=== PATIENT | male | born 1960 | race Caucasian/White ===

== ENCOUNTER 2025-07-15 11:17 | Outpatient (REF) | payer OTHER, SELFPAY ==
--- OUTSIDE RECORDS SUMMARY | 2025-07-15 14:09 | XMS_ITS | Encounter Summary ---
Author Organization [employer] Address [address] [facility] 7t [place] [address] Care Team Providers Care Process Engineering Intern Name Role Phone Seth Hughes NP Primary Care Provider Jayson Dennis Unavailable Unavailable Encounter Details Date Type Department Care Team (Late st Contact Info) Description 12/16/2022 Abstract Joann [facility] MEDICAL [address] [place] [address] Provider, MD [place] Social History Tobacco Use Types Packs/Day Years Used Date Smoking Tobacco: Never Assessed Depression Answer Date Recorded Patient Health Questionnaire-2 Score 0 12/19/2022 Sex and Gender Information Value Date Recorded Sex Assigned at Male 05/05/2025 3:26 PM EDT Legal Sex Male 5:42 PM EDT Gender Identity Male 05/05/2025 3:26 PM EDT Sexual Orientation Straight 05/05/2025 3: 26 PM EDT COVID-19 Exposure Response Date Recorded In the last 10 days, have yo u been in contact with someone who was confirmed or suspected to have Coronavirus/COVID-19? No / Unsure 12/18/2022 7:20 AM EDT documented as of this encounter Functional Status * Over the past 2 weeks, how often have you been bothered by any of the following problems? Question Answer Date of Assessment Author Little interest or pleasure in doing things Not at all 12/19/2022 11:14 AM EDT Renuka Schroeder MA Feeling down, depressed, or hopeless Not at all 12/19/2022 11:14 AM EDT Renuka Schroeder MA Patient Health Questionnaire -2 Score 0 12/19/2022 11:14 AM EDT Renuka Schroeder MA documented as of this encounter Plan of Treatment Upcoming Encounters Date Type Department Care Team (Late st Contact Info) Description 07/28/2025 10:00 AM EDT Office Visit [facility] MEDICAL [address] [place] [address] Seth Hughes NP [address] [place] [address] 08/17/2025 8:30 AM EST Office Visit [facility] DENTAL [address] [place] [address] Timigeorge Jareth 10/19/2025 8:30 AM EST Office Visit [facility] OPTOMETRY [address] [place] [address] Debi Bynum, OD [address] [place] [address] documented as of this encounter Procedures Procedure Name Priority Date/Time Associated Diagnosis Comments TSH Routine 02/28/2022 HEPATIC FUNCTION PANEL Routine 02/28/2022 LIPID PANEL, STANDARD Routine 02/28/2022 BASIC METABOLIC PANEL Routine 06/08/2021 HIV-1 ANTIBODY, EIA Routine 07/30/2015 documented in this encounter Results * TSH (02/28/2022) TSH 2.13 0.40 - 4.20 uIU/mL Comment:Free Triiodothyronin e, Serum 3.0 Blood Venous blood specimen / Unknown Narrative Resulting Agency Comment HCV Seth Hughes ORTHOPEDIC NURSE LAB BLOOD ORDERABLES Final R esult * Hepatic Function Panel (02/28/2022) ALT (SGPT) 40 <=1,000 U/L AST 35 U/L Blood Venous blood specimen / Unknown Narrative Resulting Agency Comment HCV Seth Hughes NP LAB BLOOD ORDERABLES Final R esult * (ABNORMAL) Lipid Panel, Standard (02/28/2022) Triglycerides 209(A) 40 - 160 mg/dL Cholesterol 106 0 - 200 mg/dL HDL Cholesterol 47 35 - 70 mg/dL LDL Cholesterol 17 mg/dL Blood Venous blood specimen / Unknown Narrative Resulting Agency Comment HCV Seth Hughes NP LAB BLOOD ORDERABLES Final R esult * Basic Metabolic Panel (06/08/2021) Glucose 114 mg/dL BUN 18 4 - 21 mg/dL Creatinine 1.0 mg/dL Potassium 4.0 3.4 - 5.5 mmol/L Sodium 137 137 - 147 mmol/L Blood Venous blood specimen / Unknown Narrative Resulting Agency Comment HCV Seth Hughes NP LAB BLOOD ORDERABLES Final R esult * HIV-1 antibody, EIA (07/30/2015) External HIV-1 Antibody Negative Comment:07/2015 Blood Venous blood specimen / Unknown Historical Provider LAB BLOOD ORDERABLES Cathy l Result documented in this encounter Visit Diagnoses Not on filedocumented in this encounter Care Teams Process Engineering Intern Relationship Specialty Start Date End Date Seth Hughes NP [address] [place] [address] PCP - General Internal Medicine 01/01/23 Jayson Dennis Community Health Worker Case Management 01/06/23 documented as of this encounter
--- OUTSIDE RECORDS SUMMARY | 2025-07-15 14:09 | XMS_ITS | Encounter Summary ---
Author Organization [employer] Address [address] [facility] 7t [place] [address] Care Team Providers Care Concrete Float Maker Name Role Phone Seth Hughes JUNIOR NET DEVELOPER Primary Care Provider [phone] Jayson Dennis Unavailable Unavailable Reason for Visit * Reason Comments Med Refill Encounter Details Date Type Department Care Team (Late st Contact Info) Description 01/19/2025 Refill Joann [facility] MEDICAL [address] [place] [address] Seth Hughes NP [address] [place] [address] Erectile dysfunction, unspecified erectile dysfunction type Social History Tobacco Use Types Packs/Day Years Used Date Smoking Tobacco: Every Day Cigarettes 1 42.8 Started: 1981 Smokeless Tobacco: Never Alcohol Use Standard Drinks/Week Comments Yes 6 (1 standard drink = 0.6 oz pur e alcohol) 6 pack a day Housing Stability Answer Date Recorded What is your housing situation today? I have kathy roberst 07/29/[address] you li ve. Do you have problems with any of the following? None of the above 07/29/2023 Food Insecurity Answer Date Recorded Within the past 12 months, y ou worried that your food would run out before you got money to buy more: Never True 07/29/2023 Within the past 12 months,th e food you bought just didn't last and you didn't have enough money to get more: Never True Transportation Answer Date Recorded In the past 12 months, has l ack of transportation kept you from medical appts, meetings, work or from getting things needed for daily living? No 07/29/2023 Utilities Answer Date Recorded In the past 12 months, has t he electric, gas, oil or water company threatened to shut off services in your home? No 07/29/2023 Depression Answer Date Recorded Patient Health Questionnaire-2 Score 0 12/19/2022 Sex and Gender Information Value Date Recorded Sex Assigned at Male 05/05/2025 3:26 PM EDT Legal Sex Male 5:42 PM EDT Gender Identity Male 05/05/2025 3:26 PM EDT Sexual Orientation Straight 05/05/2025 3: 26 PM EDT documented as of this encounter Plan of Treatment Upcoming Encounters Date Type Department Care Team (Late st Contact Info) Description 07/28/2025 10:00 AM EDT Office Visit [facility] MEDICAL [address] [place] [address] Seth Hughes NP [address] [place] [address] 08/17/2025 8:30 AM EST Office Visit [facility] DENTAL [address] [place] [address] Jareth Ramirez 10/19/2025 8:30 AM EST Office Visit [facility] OPTOMETRY [address] [place] [address] Debi Bynum, OD [address] [place] [address] documented as of this encounter Visit Diagnoses Diagnosis Erectile dysfunction, unspecified erectile dysfunction type documented in this encounter Care Teams Concrete Float Maker Relationship Specialty Start Date End Date Seth Hughes NP [address] [place] [address] PCP - General Internal Medicine 01/01/23 Jayson Dennis Community Health Worker Case Management 01/06/23 documented as of this encounter
--- OUTSIDE RECORDS SUMMARY | 2025-07-15 14:09 | XMS_ITS | Encounter Summary ---
Author Organization [employer] Address [address] [facility] 7t [place] [address] Care Team Providers Care Plush Weaver Name Role Phone Seth Hughes NP Primary Care Provider Jayson Dennis Unavailable Unavailable Encounter Details Date Type Department Care Team (Latest Contact Info) Description 09/09/2019 Abstract [facility], Provider, DDS Social History Tobacco Use Types Packs/Day Years Used Date Smoking Tobacco: Never Assessed Sex and Gender Information Value Date Recorded Sex Assigned at Male 05/05/2025 3:26 PM EDT Legal Sex Male 5:42 PM EDT Gender Identity Male 05/05/2025 3:26 PM EDT Sexual Orientation Straight 05/05/2025 3: 26 PM EDT documented as of this encounter Plan of Treatment Upcoming Encounters Date Type Department Care Team (Late st Contact Info) Description 07/28/2025 10:00 AM EDT Office Visit [facility] MEDICAL [address] [place] [address] Seth Hughes NP [address] [place] [address] 08/17/2025 8:30 AM EST Office Visit [facility] DENTAL [address] [place] [address] Jareth Ramirez 10/19/2025 8:30 AM EST Office Visit [facility] OPTOMETRY [address] [place] [address] Debi Bynum OD [address] [place] [address] documented as of this encounter Visit Diagnoses Not on filedocumented in this encounter Care Teams Plush Weaver Relationship Specialty Start Date End Date Seth Hughes NP [address] [place] [address] PCP - General Internal Medicine 01/01/23 Jayson Dennis Community Health Worker Case Management 01/06/23 documented as of this encounter
--- OUTSIDE RECORDS SUMMARY | 2025-07-15 14:09 | XMS_ITS | Encounter Summary ---
Author Organization [employer] Address [address] [facility] 7t [place] [address] Care Team Providers Care Planning Consultant Name Role Phone Seth Hughes NP Primary Care Provider Jayson Dennis Unavailable Unavailable Encounter Details Date Type Department Care Team (Latest Contact Info) Description 06/12/2022 Abstract [facility], Provider, DDS Social [...] Description 07/28/2025 10:00 AM EDT Office Visit [facility] MEDICAL [address] [place] [address] Seth Hughes NP [address] [place] [address] 08/17/2025 8:30 AM EST Office Visit [facility] DENTAL [address] [place] [address] Jareth Ramirez 10/19/2025 8:30 AM EST Office Visit [facility] OPTOMETRY [address] [place] [address] Debi Bynum OD [address] [place] [address] documented as of this encounter Visit Diagnoses Not on filedocumented in this encounter Care Teams Planning Consultant Relationship Specialty Start Date End Date Seth Hughes NP [address] [place] [address] PCP - General Internal Medicine 01/01/23 Jayson Dennis Community Health Worker Case Management 01/06/23 documented as of this encounter
--- OUTSIDE RECORDS SUMMARY | 2025-07-15 14:09 | XMS_ITS | Encounter Summary ---
Author Organization [employer] Address [address] [facility] 7t [place] [address] Care Team Providers Care Crop Duster Name Role Phone Seth Hughes NP Primary Care Provider Jayosn Dennis Unavailable Unavailable Encounter Details Date Type Department Care Team (Latest Contact Info) Description 12/07/2021 Abstract [facility] Dental, Provider, DDS Social [...] Description 07/28/2025 10:00 AM EDT Office Visit [facility] MEDICAL [address] [place] [address] Seth Hughes NP [address] [place] [address] 08/17/2025 8:30 AM EST Office Visit [facility] DENTAL [address] [place] [address] Jareth Ramirez 10/19/2025 8:30 AM EST Office Visit [facility] OPTOMETRY [address] [place] [address] Debi Bynum OD [address] [place] [address] documented as of this encounter Visit Diagnoses Not on filedocumented in this encounter Care Teams Crop Duster Relationship Specialty Start Date End Date Seth Hughes NP [address] [place] [address] PCP - General Internal Medicine 01/01/23 Jayson Dennis Community Health Worker Case Management 01/06/23 documented as of this encounter
--- OUTSIDE RECORDS SUMMARY | 2025-07-15 14:09 | XMS_ITS | Clinical Summary ---
Author Organization [facility] Address [address] [facility] [address] [place] [address] Phone Care Team Providers Care Environmental Health And Safety Intern Name Role Phone Seth Hughes NP Primary Care Provide r Ele Pereira MD Unavailable [phone] Allergies No known active allergies Medications allopurinol (ZYLOPRIM) 300 MG tablet Take 300 mg by mouth daily. 12/27/2020 Active lisinopril (PRINIVIL,ZESTRI L) 10 MG tablet Take 10 mg by mouth daily. 12/28/2020 Active atorvastatin (LIPITOR) 40 MG tablet 06/20/2021 Active Social History Tobacco Use Types Packs/Day Years Used Date Smoking Tobacco: Every Day Cigarettes Cigars Smokeless Tobacco: Never Alcohol Use Standard Drinks/Week Comments Yes 0 (1 standard drink = 0.6 oz pur e alcohol) Education Answer Date Recorded Are you interested in more education? Not on benjamin e 01/24/2023 Are you concerned about learning? Not on file 01/24/2023 No 01/24/2023 No 01/24/2023 Digital Access Answer Date Recorded No 02/22/2023 No 02/22/2023 No 02/22/2023 Reliable internet access at home? Not on file 02/22/2023 Device with a working camera? Not on file Sex and Gender Information Value Date Recorded Sex Assigned at Not on file Legal Sex Male 9:46 PM EDT Gender Identity Not on file Sexual Orientation Not on file Last Filed Vital Signs Vital Sign Reading Time Taken Comments Blood Pressure - - Pulse - - Temperature - - Respiratory Rate - - Oxygen Saturation - - Inhaled Oxygen Concentration - - Weight 99.8 kg (220 lb) 06/14/2021 8:19 AM EDT Height 152.4 cm (5') 10/08/2021 10:07 AM EST Body Mass Index 30.68 06/14/2021 8:19 AM EDT Plan of Treatment Health Maintenance Due Date Last Done Comments Adult Td,Tdap Booster 1961 CREATININE LEVEL 1961 LIPID PANEL 1961 POTASSIUM LEVEL 1961 DEPRESSION SCREENING 1973 SMOKING Hx and SMOKELESS TOBACCO SCREENING 1974 HEPATITIS C SCREENING 1979 HIV ONE-TIME SCREENING (18-6 5 YEARS) 1979 PNEUMOCOCCAL VACCINES (50+ years) (1 of 2 - PCV) 1980 COLOGUARD 2006 COLONOSCOPY 2006 COLORECTAL CANCER SCREENING 2006 FIT TEST 2006 FOBT 2006 SIGMOIDOSCOPY 2006 VIRTUAL COLONOSCOPY 2006 ZOSTER VACCINES (1 of 2) 2011 INFLUENZA VACCINE (#1) 2025 0, 10/05/2019 COVID-19 VACCINE (3 - 2024-2 6 season) 2025 01/26/2021, 12/29/2020 RSV VACCINE (1 - 1-dose 75+ series) 2036 HEPATITIS A VACCINES Aged Out No long er eligible based on patient's age to complete this topic HIB VACCINES Aged Out No longer eligi ble based on patient's age to complete this topic MENINGOCOCCAL VACCINES (ACWY) Aged Out No longer eligible based on patient's age to complete this topic MENINGOCOCCAL VACCINES (B) Aged Out N o longer eligible based on patient's age to complete this topic Medical Devices Not on file Insurance [facility] [employer] [place] [address] [place] [address] [place] [address] [place] [address] [place] [address] [place] [address] [employer] DIRECT Care Teams Environmental Health And Safety Intern Relationship Specialty Start Date End Date Seth Hughes NP PCP - General 02/14/21 Ele Pereira MD [address] [place] [phone] [email or web address] Insurance Assigned Provider Internal Medicine 04/08/22 Additional Source Comments The information contained in this document represents components of the legal health record. It is not the complete legal health record.[facility]
--- OUTSIDE RECORDS SUMMARY | 2025-07-15 14:09 | XMS_ITS | Encounter Summary ---
Author Organization [employer] Address [address] [facility] [address] 7t [place] [address] Care Team Providers Care Agriculture Internship Name Role Phone Seth Hughes NP Primary Care Provider Jayson Dennis Unavailable Unavailable Reason for Visit * Reason Comments Med Refill Encounter Details Date Type Department Care Team (Late st Contact Info) Description 11/28/2024 Refill [facility] MEDICAL [address] [place] [address] Sulma Asher FNP [address] [place] [address] Primary hypertension; Chronic gout without tophus, unspecified cause, unspecified site Social History Tobacco Use Types Packs/Day Years Used Date Smoking Tobacco: Every Day Cigarettes 1 42.8 Started: 1981 Smokeless Tobacco: Never Alcohol Use Standard Drinks/Week Comments Yes 6 (1 standard drink = 0.6 oz pur e alcohol) 6 pack a day Housing Stability Answer Date Recorded What is your housing situation today? I have kathy roberts 07/29/[address] you li [...] PM EDT documented as of this encounter Miscellaneous Notes * Telephone Encounter - Catrachita Nelson MD - 11/29/2024 8:46 AM EST Approving, but needs appt for additional refills. documented in this encounter Plan of Treatment Upcoming Encounters Date Type Department Care Team (Late st Contact Info) Description 07/28/2025 10:00 AM EDT Office Visit [facility] MEDICAL [address] [place] [address] Seth Hughes NP [address] [place] [address] 08/17/2025 8:30 AM EST Office Visit [facility] DENTAL [address] [place] [address] Jareth Ramirez 10/19/2025 8:30 AM EST Office Visit [facility] OPTOMETRY [address] [place] [address] Debi Bynum, PAWAN [address] [place] [address] documented as of this encounter Visit Diagnoses Diagnosis Primary hypertension Unspecified essential hypertension Chronic gout without tophus, unspecified cause, unspecified site documented in this encounter Care Teams Agriculture Internship Relationship Specialty Start Date End Date Seht Hughes NP [address] [place] [address] PCP - General Internal Medicine 01/01/23 Jayson Dennis Community Health Worker Case Management 01/06/23 documented as of this encounter
--- OUTSIDE RECORDS SUMMARY | 2025-07-15 14:09 | XMS_ITS | Encounter Summary ---
Author Organization [employer] Address [address] [facility] [place] [address] Care Team Providers Care Industry Consultant Name Role Phone Seth Hughes NP Primary Care Provider Jayson Dennis Unavailable Unavailable Encounter Details Date Type Department Care Team (Late st Contact Info) Description 05/26/2025 Results Follow-Up [facility] MEDICAL [address] [place] [address] Nanette Craig CNP [address] [place] [address] Referral to Wound Clinic Social History Tobacco Use Types Packs/Day Years Used Date Smoking Tobacco: Every Day Cigarettes 1 42.8 Started: 1982 Passive Smoke Exposure: Current Smokeless Tobacco: Never Alcohol Use Standard Drinks/Week Comments Yes 6 (1 standard drink = 0.6 oz pur e alcohol) 6 pack a day Alcohol Answer Date Recorded How often do you have a drink containing alcohol ? 0 05/05/2025 How many drinks containing a lcohol do you have on a typical day when you are drinking? 0 05/05/2025 How often do you have six or more drinks on one occasion? 0 05/05/2025 Housing Stability Answer Date Recorded What is your housing situation today? I have kathy roberts 04/14/[address] you li ve. Do you have problems with any of the following? None of the above 04/14/2025 Food Insecurity Answer Date Recorded Within the past 12 months, y ou worried that your food would run out before you got money to buy more: Never True 04/14/2025 Within the past 12 months,th e food you bought just didn't last and you didn't have enough money to get more: Never True Transportation Answer Date Recorded In the past 12 months, has l ack of transportation kept you from medical appts, meetings, work or from getting things needed for daily living? No 04/14/2025 Intimate Partner Violence Answer Date R ecorded Within the last year, have y ou been afraid of your partner or ex-partner? 2 05/05/2025 Within the last year, have y ou been humiliated or emotionally abused in other ways by your partner or ex-partner? 2 Within the last year, have y ou been kicked, hit, slapped, or otherwise physically hurt by your partner or ex-partner? 2 05/05/2025 Within the last year, have y ou been raped or forced to have any kind of sexual activity by your partner or ex-partner? 2 05/05/2025 Utilities Answer Date Recorded In the past 12 months, has t he electric, gas, oil or water company threatened to shut off services in your home? No 04/14/2025 Depression Answer Date Recorded Patient Health Questionnaire-2 Score 0 04/14/2025 Internet Access Answer Date Recorded Internet Access Q1 Yes 04/14/2025 Internet Access Q2 Not on file 04/14/2025 Education Answer Date Recorded What is the highest level of school you have completed or the highest degree you have received? Some college, no degree 04/14/2025 Sex and Gender Information Value Date Recorded Sex Assigned at Male 05/05/2025 3:26 PM EDT Legal Sex Male 5:42 PM EDT Gender Identity Male 05/05/2025 3:26 PM EDT Sexual Orientation Straight 05/05/2025 3: 26 PM EDT Occupation Industry Job Start Date Job End Date Not on file Not on file Not on file Not on file documented as of this encounter Plan of Treatment Upcoming Encounters Date Type Department Care Team (Late st Contact Info) Description 07/28/2025 10:00 AM EDT Office Visit [facility] MEDICAL [address] [place] [address] Seth Hughes NP [address] [place], [place] 08/17/2025 8:30 AM EST Office Visit Jo[facility] DENTAL [address] [place] [address] Jareth Ramirez 10/19/2025 8:30 AM EST Office Visit [facility] OPTOMETRY [address] [place], [place] [id number] Debi Bynum, PAWAN [address] [place] [address] documented as of this encounter Visit Diagnoses Not on filedocumented in this encounter Care Teams Industry Consultant Relationship Specialty Start Date End Date Seth Hughes NP [address] [place] [address] PCP - General Internal Medicine 01/01/23 Jayson Dennis Community Health Worker Case Management 01/06/23 documented as of this encounter
--- OUTSIDE RECORDS SUMMARY | 2025-07-15 14:09 | XMS_ITS | Clinical Summary ---
Author Organization [email or web address] Address [address] [facility] 7t [place] [address] Care Team Providers Care Registered Nurse Bone Marrow Transplant Name Role Phone Seth Hughes NP Primary Care Provider Jayson Dennis Unavailable Unavailable Allergies No known active allergies Medications sildenafil (Viagra) 50 MG tabletIndications:Ere ctile dysfunction, unspecified erectile dysfunction type TAKE 1 TABLET BY MOUTH EVERY DAY NEEDED FOR ERECTILE DYSFUNCTION 4 tablet 2 10/06/19 25 Active lisinopril 10 MG tabletIndications:Anisha catrachita hypertension TAKE 1 TABLET BY MOUTH EVERY DAY IN THE MORNING 90 tablet 1 05/11/20 25 Active allopurinol (Zyloprim) 300 MG tabletIndications:Chr onic gout without tophus, unspecified cause, unspecified site TAKE 1 TABLET BY MOUTH EVERY DAY 90 tablet 1 05/11/20 25 Active atorvastatin (Lipitor) 40 MG tabletIndications:Pur e hyperglyceridemia TAKE 1 TABLET BY MOUTH EVERY DAY 90 tablet 3 05/23/20 25 Active Active Problems Problem Noted Date Diagnosed Date Hypertriglyceridemia 01/10/2023 Obesity 01/10/2023 Thrombocytopenia 01/10/2023 Elevated blood pressure reading 01/10/2023 Alcohol abuse 01/10/2023 Dupuytren's contracture of both hands 01/10/2023 Presbyopia of both eyes 01/10/2023 Macular scar of right eye 01/10/2023 Primary osteoarthritis, right hand 01/10/2023 Primary osteoarthritis of left hand 01/10/2023 Primary hypertension 12/18/2022 Smoking 12/18/2022 Prediabetes 12/18/2022 Chronic gout without tophus 12/18/2022 Erectile dysfunction 12/18/2022 Resolved Problems Problem Noted Date Diagnosed Date Resolved Date Posterior subcapsular age-re lated cataract of right eye 01/10/2023 10/13/2024 Encounters Date Type Department Care Team Description 05/26/2025 Results [place] [place] [address] [place] [address] Nanette Craig CNP Referral to Wound Clinic 05/21/[address] [facility] MEDICAL [address] [place] [address] Mansi Marrero MD Pure hyperglyceridemia 05/11/2025 Refill [facility] MEDICAL [address] [place] [address] Catrachita Nelson MD Primary hypertension; Chronic gout without tophus, unspecified cause, unspecified site 05/05/2025 3:30 PM EDT Office Visit [facility] [address] [place] [address] Seth Hughes NP Laceration of right ankle, subsequent encounter (Primary Dx); Wound infection; Primary hypertension; Pure hypercholesterolemia; Prediabetes; Idiopathic chronic gout without tophus, unspecified site; Tobacco abuse 04/28/2025 3:00 PM EDT Office Visit [facility] [address] [place] [address] Seth Hughes NP Laceration of right ankle, subsequent encounter (Primary Dx); Wound infection 04/14/2025 12:00 PM EDT Office Visit [facility] [address] [place] [address] Nanette Craig CNP Encounter for examination following treatment at hospital (Primary Dx); Laceration of right ankle, subsequent encounter from Last 3 Months Immunizations Immunization Administration Dates Next Due Hep A, Adult 10/04/2004,03/22/2004 Hep B, adult 04/15/2016,11/08/2015,10/11/2015 INFLUENZA INJECTABLE QUADRIV ALANT CCIIV4 MDCK Multi-dose vial 10/05/2019 Influenza Injectable Quadriv alant Preservative Free IIV4 MDCK 05/20/2022,06/20/2020 Influenza injectable quadriv alent preservative free 07/05/2023 Influenza, IIV3, injectable 06/06/2025,0 06/05/2024,07/05/2023,2021,06/08/2021,06/20/2020,10/05/2019,1 ,08/07/2017,08/04/2015 Influenza, Injectable, MDCK, preservative free 06/05/2024 Influenza, Split (incl. gila fied surface antigen) 10/11/2004 MMR 06/08/2021 Moderna Covid-19 Vaccine 12+ 06/06/2025 Pfizer Covid-19 Vaccine 12+ 06/05/2024, Pneumococcal Conjugate PCV 20 11/20/2023 RSV Adjuvant 07/05/2023 TD (adult), 2 Lf tetanus tox oid, preservative free, adsorbed 10/11/2004 Tdap 04/01/2025,12/19/2022,04/22/2012 Zoster, Recombinant 04/13/2022,01/11/2022 Family History Medical History Relation Name Comments Macular degeneration Mother Relation Name Status Comments Mother Social History Tobacco Use Types Packs/Day Years Used Date Smoking Tobacco: Every Day Cigarettes 1 42.8 Started: 1982 Passive Smoke Exposure: Current Smokeless Tobacco: Never Tobacco Cessation:Ready to Q uit: Not Asked; Counseling Given: Not Answered Alcohol Use Standard Drinks/Week Comments Yes 6 [...] file Not on file Not on file Last Filed Vital Signs Vital Sign Reading Time Taken Comments Blood Pressure 123/71 05/05/2025 3:27 PM EDT Pulse 82 05/05/2025 3:27 PM EDT Temperature 36.9 C (98.4 F) 04/28/2025 3:09 PM EDT Respiratory Rate 18 04/28/2025 3:09 PM EDT Oxygen Saturation 96% 05/05/2025 3:27 PM EDT Inhaled Oxygen Concentration - - Weight 88.5 kg (195 lb) 05/05/2025 3:27 PM EDT Height 182.9 cm (6') 05/05/2025 3:27 PM EDT Body Mass Index 26.45 05/05/2025 3:27 PM EDT Plan of Treatment Upcoming Encounters Date Type Department Care Team (Late st Contact Info) Description 07/28/2025 10:00 AM EDT Office Visit [facility] MEDICAL [address] [place] [address] Seth Hughes NP [address] [place] [address] 08/17/2025 8:30 AM EST [facility] [place] [facility] [place] [address] [place] [address] Jareth Ramirez 10/19/2025 8:30 AM EST [facility] [place] [facility] [place] [address] [place] [address] Debi Bynum, OD [address] [place] [address] Health Maintenance Due Date Last Done Comments CT Colonography 1961 FIT DNA/Cologuard 1961 FIT 1961 FOBT 1961 Sigmoidoscopy 1961 Hepatitis C Screening 1979 Lung Cancer Screening 2011 Colonoscopy 06/28/2024 06/28/2014 Colorectal Cancer Screening 06/28/2024 Diabetes: Hemoglobin A1C 11/20/20242 024, 12/19/2022, 06/08/2021, Additional history exists COVID-19 Vaccine ( season) 2025 06/06/2025, 06/05/2024, 06/05/2024, Additional history exists Dental Oral Exam 08/13/2025 02/09/2025, 04/2024, 01/29/2024, Additional history exists Dental Prophylaxis 08/13/2025 02/09/2025, 1 10/06/2023, 01/29/2024, Additional history exists Dental X-Ray: Full Mouth 12/19/2025 023, 09/09/2019, 07/18/2016, Additional history exists Dental X-Ray: Bitewings 02/10/2026 02/10/20 25, 01/29/2024, 12/18/2022, Additional history exists Depression Screening 04/14/2026 04/14/2025, 04/14/20 Disability Screening 04/14/2026 04/14/2025 SDOH Screening 04/14/2026 04/14/2025 Alcohol/Substance Use Screening 05/05/2026 05/05/2025 Tobacco Screening 05/05/2026 05/05/2025 Lipid Panel 01/22/2028 01/21/2023, 0610/2021, 02/28/2022, Additional history exists DTaP/Tdap/Td Vaccines (4 - Td or Tdap) 04/01/2035 04/01/2025, 12/19/2022, 04/22/2012, Additional history exists Hepatitis A Vaccines Aged Out 10/04/2004, 03/22/20 04 No longer eligible based on patient's age to complete this topic HIV Screening Completed 07/30/2015 Hepatitis B Vaccines Completed 04/15/2016, 11/08/2015, 10/11/2015 Zoster Vaccines Completed 04/13/2022, 01/11/2022 RSV Patients and Patients Aged 60 years or older Completed 07/05/2023 Pneumococcal Vaccine: 50+ Years Completed 11/20/2023 Influenza Vaccine Completed 06/06/2025, , 06/05/2024, Additional history exists HIB Vaccines Aged Out No longer eligi ble based on patient's age to complete this topic HPV Vaccines Aged Out No longer eligi ble based on patient's age to complete this topic IPV Vaccines Aged Out No longer eligi ble based on patient's age to complete this topic Meningococcal B Vaccine Aged Out No l onger eligible based on patient's age to complete this topic Meningococcal Vaccine Aged Out No neno amrkos eligible based on patient's age to complete this topic RSV under 20 months Aged Out No longe r eligible based on patient's age to complete this topic Rotavirus Vaccines Aged Out No longer eligible based on patient's age to complete this topic Procedures Procedure Name Priority Date/Time Associated Diagnosis Comments AMB REFERRAL TO WOUND CLINIC STAT 05/12/2025 Wound infection AEROBIC BACTERIAL CULTURE RESULT (NON ORDERABLE) Routine 04/28/2025 12:00 AM EDT CULTURE, AEROBIC BACTERIA Routine 04/28/2025 12:00 AM EDT Wound infection SUTURE REMOVAL Routine 04/14/2025 1:53 PM EDT Encounter for examination following treatment at hospital Laceration of right ankle, subsequent encounter Full PROPHYLAXIS - ADULT Routine 02/09/2025 8:30 AM EDT BITEWINGS - 4 RADIOGRAPHIC IMAGES Routine 02/09/2025 8:30 AM EDT PERIODIC ORAL EVALUATION - ESTABLISHED PATIENT Routine 02/09/2025 8:30 AM EDT POCT GLYCOSYLATED HEMOGLOBIN (HGB A1C) Routine 11/20/2023 9:37 AM EST Prediabetes LIPID PANEL, STANDARD Routine 01/21/2023 8:49 AM EDT Primary hypertension Prediabetes INTRAORAL - COMPLETE SERIES OF RADIOGRAPHIC IMAGES Routine 12/18/2022 7:20 AM EDT HIV-1 ANTIBODY, EIA Routine 07/30/2015 COLONOSCOPY Routine 06/28/2014 12:00 AM EDT from Last 3 Months or Most Recently Relevant to Health Maintenance Results * Referral to Wound Clinic (05/12/2025) Seth Hughes NP OUTPATIENT REFERRAL ORDERABL ES Final Result * (ABNORMAL) Aerobic Bacterial Culture Result (04/28/2025 12:00 AM EDT) Aerobic Bacterial Culture Result 1 Proteus vulgaris(A) [facility] 1 Comment:Heavy growth Aerobic Bacterial Culture Result 2 Skin hattie isolated [facility] 1 Comment:Light growth Antimicrobial Susceptibility [facility] 1 Comment: S = Susceptible; I = Intermediate; R = Resistant P = Positive; N = Negative MICS are expressed in micrograms per mL Antibiotic RSLT#1 RSLT#2 RSLT#3 RSLT#4 Amoxicillin/Clavulanic Acid S Ampicillin R Cefepime S Cefoxitin S Cefpodoxime S Ciprofloxacin S Ertapenem S Gentamicin S Levofloxacin S Piperacillin/Tazobactam S Tetracycline R Tobramycin S Trimethoprim/Sulfa S 04/28/2025 04/29/2025 Narrative Resulting Agency Comment Performed at: [facility] [address], [address], [place], [place] [id number] Biofuels Processing Technician: Austin Eason MD, Phone: [phone] Seth Hughes NP HISTORICAL/NON ORDERABLE LAB S Final Result Performing Organization Address City/[facility] Co de Phone Number [email or web address] 1 * (ABNORMAL) Culture, Aerobic Bacteria (04/28/2025 12:00 AM EDT) [facility] Aerobic Bacterial Culture Final report(A) [facility] 1 Swab Structure of left lower limb / Unknown 04/28/2025 04/29/2025 Comment:Leg, Left Collection : Narrative Resulting Agency Comment Performed at: [facility] [address], [address], [place], [place] [id number] Biofuels Processing Technician: Austin Eason MD, Phone: [phone] Seth Hughes NP LAB MICROBIOLOGY - GENERAL O RDERABLES Final Result Performing Organization Address [facility] Co de Phone Number [email or web address] 1 * Suture Removal (04/14/2025 1:53 PM EDT) Nanette Quinn CNP - 04/14/2025 1:53 PM EDT Nanette Craig CNP 04/14/2025 2:01 PM Suture Removal Date/Time: 04/14/2025 1:53 PM Performed by: Nanette Craig CNP Authorized by: Nanette Craig CNP Consent: Consent obtained: Verbal Consent given by: Patient Risks, benefits, and alternatives were discussed: yes Risks discussed: Bleeding, pain and wound separation Alternatives discussed: No treatment and delayed treatment Carson protocol: Procedure explained and questions answered to patient or proxy's satisfaction: yes Relevant documents present and verified: yes Patient identity confirmed: Verbally with patient Location: Location: Lower extremity Lower extremity location: Leg Leg location: L lower leg Procedure details: Wound appearance: No signs of infection Number of sutures removed: 21 Post-procedure details: Post-removal: Steri-Strips applied Procedure completion: Tolerated well, no immediate complications Comments: Small amt of bleeding at site Nanette Craig EXECUTIVE MARKETING ASSISTANT IN CLINIC/BEDSIDE ORDERABLES Final Result * POCT glycosylated hemoglobin (Hgb A1c) (11/20/2023 9:37 AM EST) [facility] Hemoglobin A1C 5.4 4.0 - 6.0 % Blood Capillary blood specimen / Unknown 11/20/2023 9:37 AM EST Seth Hughes NP POINT OF CARE TEST ENTER/OLIVIER T ORDERABLES Final Result * Lipid panel (01/21/2023 8:49 AM EDT) [facility] Cholesterol, Total 143 (<200) MG/DL [facility] Triglyceride (mg/dL) in Serum/Plasma 99 (<150) MG/DL [facility] HDL Cholesterol 59 (>39) MG/DL [facility] LDL Cholesterol, Calculated 64 (0-130) MG/DL [facility] Non HDL Chol. (LDL+VLDL) 84 (<160) MG/DL [facility] Comment: Testing performed or reported by [facility], a Service of [facility], [address] [place] [address] Jay Becerra MD, Track Worker [facility]# [id number] Blood Venous blood specimen / Unknown 01/21/2023 8:49 AM EDT 01/21/2023 8:51 AM EDT Seth Hughes NP LAB BLOOD ORDERABLES Final R esult [facility] [address] [place] [address] * HIV-1 antibody, EIA (07/30/2015) External HIV-1 Antibody Negative Comment:07/2015 Blood Venous blood specimen / Unknown Historical Provider LAB BLOOD ORDERABLES Cathy l Result * COLONOSCOPY: DOMINIQUE HOWARD MD (06/28/2014 12:00 AM EDT) Anatomical Region Laterality Modality Endoscopy 06/28/2014 Narrative 06/28/2014 12:00 AM EDT Refer to Fovea for result details Legacy Procedure: COLONOSCOPY: DOMINIQUE HOWARD MD Procedure Note Provider, MD [place] - 01/23/2023 Refer to Fovea for result details Legacy Procedure: COLONOSCOPY: DOMINIQUE HOWARD MD Historical Provider ENDOSCOPY PROCEDURE ORDER MIMA Final Result from Last 3 Months or Most Recently Relevant to Health Maintenance Insurance [facility] D[facility] - HSN PARTIAL (MEDICAID) [facility] Care Teams Registered Nurse Bone Marrow Transplant Relationship Specialty Start Date End Date Seth Hughes NP [address] [place] [address] PCP - General Internal Medicine 01/01/23 Jayson Dennis Community Health Worker Case Management 01/06/23
--- OUTSIDE RECORDS SUMMARY | 2025-07-15 14:09 | XMS_ITS | Encounter Summary ---
Author Organization [facility] Address [address] [facility] 7t [place] [address] Care Team Providers Care Breaker Off Name Role Phone Seth Hughes NP Primary Care Provider Jayson Dennis Unavailable Unavailable Reason for Visit * Reason Comments Med Refill Encounter Details Date Type Department Care Team (Late st Contact Info) Description 11/27/2022 Refill [facility] MEDICAL [address] [place] [address] Seth Hughes NP [facility] [place] [address] Chronic gout without tophus, unspecified cause, unspecified site (Primary Dx) Social History Tobacco Use Types Packs/Day Years [...] Telephone Encounter - Catrachita Nelson MD - 11/27/2022 9:11 AM EST Approving, but needs appt for additional refills. * Telephone Encounter - Olman Cortez - 11/27/2022 8:47 AM EST Last appt was telemedicine 03/01/21, last OV 11/29/20. Patient needs to schedule an in office visit with JBL. documented in this encounter Plan of Treatment Upcoming Encounters Date Type Department Care Team (Late st Contact Info) Description 07/28/2025 10:00 AM EDT Office Visit [place] MEDICAL [address] [place] [address] Seth Hughes NP [address] [place] [address] 08/17/2025 8:30 AM EST Office Visit [facility] DENTAL [address] [place] [address] Jareth Ramirez 10/19/2025 8:30 AM EST Office Visit [facility] OPTOMETRY [address] [place] [address] Debi Bynum, OD [address] [place] [address] documented as of this encounter Visit Diagnoses Diagnosis Chronic gout without tophus, unspecified cause, unspecified site- Primary documented in this encounter Care Teams Breaker Off Relationship Specialty Start Date End Date Seth Hughes NP [address] [place] [address] PCP - General Internal Medicine 01/01/23 Jayson Dennis Community Health Worker Case Management 01/06/23 documented as of this encounter
--- OUTSIDE RECORDS SUMMARY | 2025-07-15 14:09 | XMS_ITS | Encounter Summary ---
Author Organization [facility] Address [address] [facility] 7t [place] [address] Care Team Providers Care Manager Ethics Name Role Phone Seth Hughes NP Primary Care Provider Jayson Dennis Unavailable Unavailable Encounter Details Date Type Department Care Team (Latest Contact Info) Description 03/09/2019 Abstract [facility] CONVERSIONS Dental, Provider, DDS Social [...] Description 07/28/2025 10:00 AM EDT Office Visit [facility] [place] MEDICAL [address] [place] [address] Seth Hughes NP [address] [place] [address] 08/17/2025 8:30 AM EST Office Visit [facility] [place] DENTAL [address] [place] [address] Jareth Ramirez 10/19/2025 8:30 AM EST Office Visit [facility] [place] OPTOMETRY [address] [place] [address] Debi Bynum OD [address] [place] [address] documented as of this encounter Visit Diagnoses Not on filedocumented in this encounter Care Teams Manager Ethics Relationship Specialty Start Date End Date Seth Hughes NP [address] [place] [address] PCP - General Internal Medicine 01/01/23 Jayson Dennis Community Health Worker Case Management 01/06/23 documented as of this encounter
--- OUTSIDE RECORDS SUMMARY | 2025-07-15 14:09 | XMS_ITS | Encounter Summary ---
Author Organization [facility] Address [address] [facility] 7t [place] [address] Care Team Providers Care Assistant Restaurant General Manager Name Role Phone Seth Hughes NP Primary Care Provider Jayson Dennis Unavailable Unavailable Encounter Details Date Type Department Care Team (Latest Contact Info) Description 11/29/2020 Abstract [facility] CONVERSION[facility] Dental, Provider, DDS Social [...] Description 07/28/2025 10:00 AM EDT Office Visit [facility] MEDICAL [address] [place] [address] Seth Hughes NP [address] [place] [address] 08/17/2025 8:30 AM EST Office Visit [facility] [place] DENTAL [address] [place] [address] Jareth Ramirez 10/19/2025 8:30 AM EST Office Visit [facility] [place] OPTOMETRY [address] [place] [address] Debi Bynum OD [address] [place] [address] documented as of this encounter Visit Diagnoses Not on filedocumented in this encounter Care Teams Assistant Restaurant General Manager Relationship Specialty Start Date End Date Seth Hughes NP [address] [place] [address] PCP - General Internal Medicine 01/01/23 Jayson Dennis Community Health Worker Case Management 01/06/23 documented as of this encounter
--- OUTSIDE RECORDS SUMMARY | 2025-07-15 14:09 | XMS_ITS | Encounter Summary ---
Author Organization [facility] Address [address] [facility] 7t [place] [address] Care Team Providers Care Electrical Cad Technician Name Role Phone Seth Hughes NP Primary Care Provider Jayson Dennis Unavailable Unavailable Encounter Details Date Type Department Care Team (Late st Contact Info) Description 04/07/2025 Orders Only [facility] [address] [place], [place] [id number] Seth Hughes NP [address] [place] [address] Social History Tobacco Use Types Packs/Day Years [...] Description 07/28/2025 10:00 AM EDT Office Visit [facility] MEDICAL [address] [place] [address] Seth Hughes NP [address] [place] [address] 08/17/2025 8:30 AM EST Office Visit [facility] DENTAL [address] [place] [address] Jareth Ramirez 10/19/2025 8:30 AM EST Office Visit [facility] OPTOMETRY [address] [place] [address] Debi Bynum, OD [address] [place] [address] documented as of this encounter Procedures Procedure Name Priority Date/Time Associated Diagnosis Comments XR ANKLE 3 OR MORE VIEWS LEFT Routine 03/31/2025 10:08 AM EDT documented in this encounter Results * XR ANKLE 3 OR MORE VIEWS LEFT (03/31/2025 10:08 AM EDT) Anatomical Region Laterality Modality Radiographic Ekaterina ging Seth Hughes NP IMG XR PROCEDURES Final Resu lt documented in this encounter Visit Diagnoses Not on filedocumented in this encounter Care Teams Electrical Cad Technician Relationship Specialty Start Date End Date Seth Hughes NP [address] [place] [address] PCP - General Internal Medicine 01/01/23 Jayson Dennis Community Health Worker Case Management 01/06/23 documented as of this encounter
[2025-07-15 16:15] LABS: Alanine Aminotransferase 49 U/L (0-40); Albumin Level 4.3 g/dL (3.5-5.0); Alkaline Phosphatase 54 U/L (39-117); Anion Gap 16 (12-20); Aspartate Amino Transferase 48 U/L (5-37); Blood Urea Nitrogen 17 mg/dL (9-16); Calcium 9.2 mg/dL (8.4-10.2); Carbon Dioxide 21 mmol/L (22-29); Chloride 105 mmol/L (96-108); Cholesterol 185 mg/dL (<200); Estimated Glomerular Filt Rate > 60; HDL Cholesterol 56 mg/dL (>40); Potassium 3.6 mmol/L (3.3-5.1); Sodium 138 mmol/L (135-145); Total Protein 7.3 g/dL (6.5-8.0); Triglycerides 278 mg/dL (<150); Uric Acid 6.8 mg/dL (3.4-7.0)
== END 2025-07-15 11:18 | disposition home or self-care (01) ==
LOC: HO.HMGCLDS 11:17
PROVIDERS: PCP Nurse Practitioner Community Health; Visit Provider Nurse Practitioner Community Health
DX: I10 Essential (primary) hypertension (principal); M1A.00X0 Idiopathic chronic gout, unspecified site, without tophus (tophi); R73.03 Prediabetes; E78.00 Pure hypercholesterolemia, unspecified
CPT/HCPCS: 36415; 80053; 80061; 83036; 84550